=== PATIENT | female | born 2000 | race Caucasian/White ===

== ENCOUNTER 2022-04-09 17:06 | Emergency (ER) | payer SELFPAY ==
[2022-04-09] MEDS ORDERED: Ketorolac 30 MG/ML SDV IM ONE (17:26)
== END 2022-04-09 18:00 | disposition home or self-care (01) ==
LOC: JD.ED 17:06
DX: K08.89 Other specified disorders of teeth and supporting structures (principal); F17.210 Nicotine dependence, cigarettes, uncomplicated; Z79.899 Other long term (current) drug therapy
CPT/HCPCS: 96372; 99283; J1885

== ENCOUNTER 2022-06-01 07:16 | Emergency (ER) | payer MEDICAID ==
[2022-06-01 09:08] LABS: CORONAVIRUS COVID-19 NAA NEGATIVE (NEGATIVE)
== END 2022-06-01 10:32 | disposition home or self-care (01) ==
LOC: JD.ED 07:16
DX: J06.9 Acute upper respiratory infection, unspecified (principal); Z20.822 Contact with and (suspected) exposure to COVID-19
CPT/HCPCS: 0241U; 36415; 86308; 87651; 99283; 99282